=== PATIENT | male | born 1995 | race African-American/Black ===

== ENCOUNTER 2018-09-08 06:08 | Emergency (ER) | payer OTHER ==
[~2018-09-08] VITALS: Ht 182.9 cm; Wt 79.1 kg
[2018-09-08 06:08] VITALS: BP 127/66
[2018-09-08] MEDS ORDERED: NAPR-50 PO (06:50)
--- NOTE | 2018-09-08 07:54 | REP ---
Clinical: Right posterior pleuritic chest pain. Comparison: None . Technique: PA and lateral. Findings: The mediastinum and cardiac silhouette are normal. The lung pro are clear and without acute consolidation, effusion, or pneumothorax. The skeletal structures are intact and normal. Impression: 1. No acute cardiopulmonary process. Electronically Signed by Giancarlo Almanza MD 09/08/2018 07:45 A
== END 2018-09-08 07:03 | disposition home or self-care (01) ==
LOC: EDBD 06:08 → M ED 06:08
DX: M54.6 Pain in thoracic spine (principal)